=== PATIENT | female | born 2000 | race Caucasian/White ===

== ENCOUNTER 2022-07-26 07:43 | Emergency (ER) | payer BC ==
[2022-07-26 08:01] VITALS: BP 126/71; PULSE 67
[2022-07-26] MEDS ORDERED: Ondansetron 4 MG/2 ML SDV IVPUSH ONE (08:48)
[2022-07-26] MEDS ORDERED: Sodium Chloride 0.9% 1,000 ML IV STA (08:48)
[2022-07-26] MEDS ORDERED: Sodium Chloride 0.9% 10 ML Syringe FLUSH PRN (08:48)
[2022-07-26] MEDS ORDERED: HYDROmorphone 0.5 MG/0.5 ML Syringe IVPUSH ONE (08:50)
[2022-07-26 09:50] LABS: ESTIMATED GFR 108 mL/min (>60)
[2022-07-26] MEDS ORDERED: Ketorolac 30 MG/ML SDV IVPUSH ONE (10:19)
[2022-07-26 11:32] LABS: C. TRACHOMATIS BY PCR DETECTED; N. GONORRHOEAE BY PCR NOT DETECTED
[2022-07-26] MEDS ORDERED: cefTRIAXone 250 MG, Lidocaine 1% 0.9 ML IM ONE ×2 (11:47)
[2022-07-26] MEDS ORDERED: Azithromycin 250 MG Tab PO ONE (11:47)
== END 2022-07-26 12:30 | disposition home or self-care (01) ==
LOC: JD.ED 07:43
DX: N39.0 Urinary tract infection, site not specified (principal); N83.209 Unspecified ovarian cyst, unspecified side; A74.9 Chlamydial infection, unspecified; Z88.0 Allergy status to penicillin; Z72.0 Tobacco use
CPT/HCPCS: 36415; 76830; 80053; 81001; 83540; 83690; 84466; 84703; 85025; 86140; 87210; 87491; 87591; 87808; 96361; 96372; 96374; 96375; 99284; A9270; J0696; J1170; J1885; J2405; J3490; J7030